=== PATIENT | female | born 1945 | race Caucasian/White ===

== ENCOUNTER 2017-01-14 04:07 | Emergency (ER) | payer MEDICARE ==
[~2017-01-14 04:07] MED LIST: ACETAMINOPHEN PO; AMLODIPINE BES2.5 M1 PO; ANTIVERT/2525 MG PO; GLU500 PO; LAC PO; LOPERAMIDE1 MG/5 M1 PO; MAC100 PO; METOPROLOL SUC100 M1 PO; METOPROLOL SUC100 M2 PO; METOPROLOL SUCC50 M1 PO; MYL80 CH; PROTONIX40 MG PO; RANITIDINE HCL300 M2 PO; TRIAMTERENE AND1 CA1 PO; XALATAN2.5 ML; ZOCOR10 MG PO; ZOFRAN4 M2 PO
[2017-01-14 04:36] LABS: microscopic required? NO
[2017-01-14 04:43] LABS: BASOPHIL % 0.3 % (0-2); PLATELET COUNT 263 x10^3mcL (130-400)
[2017-01-14 04:44] LABS: RED CELL DISTRIBUTION WIDTH 15.5 % (11.5-14.5)
[2017-01-14 04:52] LABS: CALCIUM 8.7 mg/dL (8.5-10.1); CARBON DIOXIDE 28.9 mmol/L (21-32); CHLORIDE SERUM 102 mmol/L (98-107); CREATININE SERUM 0.8 mg/dL (0.6-1.0); GFR1 > 60 mL/min; GLUCOSE SERUM 114 mg/dL (74-106); POTASSIUM SERUM 3.9 mmol/L (3.5-5.1); SODIUM SERUM 140 mmol/L (136-145)
[2017-01-14 04:52] LABS: UA SPECIFIC GRAVITY 1.025 (1.005-1.035); urine erythrocyte NEGATIVE (NEGATIVE)
[2017-01-14 04:57] LABS: ALBUMIN 3.4 g/dL (3.4-5.0); ALKALINE PHOSPHATASE 82 U/L (46-116); ALT/SGPT 23 U/L (14-59); AMYLASE 80 U/L (25-115); AST/SGOT 20 U/L (15-37); BILIRUBIN TOTAL 0.8 mg/dL (0.20-1.00); LIPASE 123 IU/L (73-393); TOTAL PROTEIN, SERUM 7.5 g/dL (6.4-8.2)
[2017-01-14 06:02] VITALS: BP 133/68
== END 2017-01-14 06:02 | disposition home or self-care (01) ==
LOC: ED 04:07
PROVIDERS: Emergency Medicine
DX: R10.12 Left upper quadrant pain (principal); R19.7 Diarrhea, unspecified; R11.0 Nausea; E78.00 Pure hypercholesterolemia, unspecified; K21.9 Gastro-esophageal reflux disease without esophagitis; I10 Essential (primary) hypertension; Z88.2 Allergy status to sulfonamides; Z88.5 Allergy status to narcotic agent
CPT/HCPCS: Q0092

== ENCOUNTER 2017-03-09 10:51 | Inpatient (IN) | payer MEDICARE ==
[~2017-03-09] VITALS: Ht 167.6 cm; Wt 81.7 kg
[2017-03-09 12:53] LABS: PLATELET COUNT 201 x10^3mcL (130-400)
[2017-03-09 12:55] LABS: ALKALINE PHOSPHATASE 81 U/L (46-116); ALT/SGPT 16 U/L (14-59); AMYLASE 69 U/L (25-115); AST/SGOT 16 U/L (15-37); BILIRUBIN TOTAL 0.89 mg/dL (0.20-1.00); CALCIUM 8.3 mg/dL (8.5-10.1); CARBON DIOXIDE 29.9 mmol/L (21-32); CHLORIDE SERUM 95 mmol/L (98-107); CREATININE SERUM 0.6 mg/dL (0.6-1.0); GFR1 > 60 mL/min; GLUCOSE SERUM 117 mg/dL (74-106); LIPASE 121 IU/L (73-393); POTASSIUM SERUM 3.1 mmol/L (3.5-5.1); TOTAL PROTEIN, SERUM 6.8 g/dL (6.4-8.2)
[2017-03-09 12:59] LABS: SODIUM SERUM 112 mmol/L (136-145)
[2017-03-09 13:02] LABS: RED CELL DISTRIBUTION WIDTH 14.6 % (11.5-14.5)
[2017-03-09 15:18] LABS: T3 TOTAL 1.1 ng/mL
[2017-03-09 15:19] LABS: FREE T4 1.37 ng/dL (0.76-1.46); FREE THYROXINE INDEX 3.3 ug/dL (1.4-4.5)
[2017-03-09 16:15] VITALS: BP 151/76
[2017-03-09 20:05] LABS: CALCIUM 7.9 mg/dL (8.5-10.1); CARBON DIOXIDE 29.5 mmol/L (21-32); CHLORIDE SERUM 106 mmol/L (98-107); CREATININE SERUM 0.7 mg/dL (0.6-1.0); GFR1 > 60 mL/min; GLUCOSE SERUM 172 mg/dL (74-106); POTASSIUM SERUM 3.8 mmol/L (3.5-5.1); SODIUM SERUM 138 mmol/L (136-145)
[2017-03-09 21:31] VITALS: BP 136/72
[2017-03-10 06:07] VITALS: BP 137/75
[2017-03-10 06:21] LABS: CALCIUM 8.2 mg/dL (8.5-10.1); CARBON DIOXIDE 26.6 mmol/L (21-32); CHLORIDE SERUM 106 mmol/L (98-107); CREATININE SERUM 0.6 mg/dL (0.6-1.0); GFR1 > 60 mL/min; GLUCOSE SERUM 112 mg/dL (74-106); MAGNESIUM 1.8 mg/dL (1.8-2.4); POTASSIUM SERUM 4.1 mmol/L (3.5-5.1); SODIUM SERUM 138 mmol/L (136-145)
[2017-03-10 06:54] LABS: BASOPHIL % 0.4 % (0-2); PLATELET COUNT 177 x10^3mcL (130-400); RED CELL DISTRIBUTION WIDTH 14.5 % (11.5-14.5)
[2017-03-10 09:08] LABS: microscopic required? NO
[2017-03-10 09:24] LABS: urine erythrocyte NEGATIVE (NEGATIVE)
[2017-03-10 10:29] VITALS: BP 137/72
[2017-03-10 14:35] VITALS: Ht 167.6 cm; Wt 81.7 kg
[2017-03-10 18:20] VITALS: BP 132/69
[2017-03-10 23:02] VITALS: BP 132/93
[2017-03-11 06:33] LABS: BASOPHIL % 0.4 % (0-2); PLATELET COUNT 197 x10^3mcL (130-400); RED CELL DISTRIBUTION WIDTH 14.4 % (11.5-14.5)
[2017-03-11 07:02] VITALS: BP 115/57
[2017-03-11 07:03] LABS: CALCIUM 8.7 mg/dL (8.5-10.1); CHLORIDE SERUM 104 mmol/L (98-107); CREATININE SERUM 0.7 mg/dL (0.6-1.0); GFR1 > 60 mL/min; GLUCOSE SERUM 111 mg/dL (74-106); MAGNESIUM 1.8 mg/dL (1.8-2.4); PHOSPHOROUS 3.9 mg/dL (2.5-4.9); POTASSIUM SERUM 3.9 mmol/L (3.5-5.1); SODIUM SERUM 140 mmol/L (136-145)
[2017-03-11 09:59] VITALS: BP 122/56
[2017-03-11 14:20] VITALS: BP 122/56
[2017-03-11] MEDS ORDERED: XARELTO15 M1 PO (17:46)
== END 2017-03-11 18:00 | disposition home or self-care (01) | DRG 392 ==
LOC: ED 10:51 → MU 14:12 → DU 14:12 → MU 03-10 07:35
PROVIDERS: Emergency Medicine; ADMIT Family Medicine
DX: K52.9 Noninfective gastroenteritis and colitis, unspecified (principal); D68.69 Other thrombophilia; I82.432 Acute embolism and thrombosis of left popliteal vein; E11.43 Type 2 diabetes mellitus with diabetic autonomic (poly)neuropathy; K31.84 Gastroparesis; K21.9 Gastro-esophageal reflux disease without esophagitis; E11.65 Type 2 diabetes mellitus with hyperglycemia; H40.9 Unspecified glaucoma; Z68.29 Body mass index [BMI] 29.0-29.9, adult; Z79.84 Long term (current) use of oral hypoglycemic drugs
CPT/HCPCS: 82962; 83880; 84439; 87046; 87046-59; J1885; J2405; J3480; J3490; J7030; Q0092; Q9967

== ENCOUNTER 2017-03-24 13:23 | Emergency (ER) | payer MEDICARE ==
[~2017-03-24 13:23] MED LIST changes: +XARELTO15 M1 PO
[2017-03-24 15:20] LABS: UA SPECIFIC GRAVITY >=1.030 (1.005-1.035); microscopic required? YES; urine erythrocyte 3+ (NEGATIVE)
[2017-03-24 16:54] VITALS: BP 147/75
== END 2017-03-24 16:54 | disposition home or self-care (01) ==
LOC: ED 13:23
PROVIDERS: Emergency Medicine
DX: R31.9 Hematuria, unspecified (principal); D68.32 Hemorrhagic disorder due to extrinsic circulating anticoagulants; I10 Essential (primary) hypertension; E78.00 Pure hypercholesterolemia, unspecified; K21.9 Gastro-esophageal reflux disease without esophagitis; Z88.5 Allergy status to narcotic agent; Z88.1 Allergy status to other antibiotic agents; Z88.8 Allergy status to other drugs, medicaments and biological substances; Z79.899 Other long term (current) drug therapy

== ENCOUNTER 2018-10-16 14:52 | Emergency (ER) | payer MEDICARE ==
[~2018-10-16] VITALS: Ht 157.5 cm; Wt 83.5 kg
[2018-10-16 15:10] VITALS: Ht 157.5 cm; Wt 83.5 kg
[2018-10-16 16:46] LABS: BASOPHIL % 0.6 % (0-2); PLATELET COUNT 265 x10^3mcL (130-400); RED CELL DISTRIBUTION WIDTH 15.5 % (11.5-14.5)
[2018-10-16 17:04] LABS: CALCIUM 8.8 mg/dL (8.5-10.1); CARBON DIOXIDE 30.6 mmol/L (21-32); CHLORIDE SERUM 102 mmol/L (98-107); CREATININE SERUM 0.8 mg/dL (0.6-1.0); GLUCOSE SERUM 112 mg/dL (74-106); POTASSIUM SERUM 4.1 mmol/L (3.5-5.1); SODIUM SERUM 138 mmol/L (136-145)
[2018-10-16 17:08] LABS: ALKALINE PHOSPHATASE 86 U/L (46-116); ALT/SGPT 16 U/L (14-59); AMYLASE 73 U/L (25-115); AST/SGOT 15 U/L (15-37); BILIRUBIN TOTAL 0.5 mg/dL (0.20-1.00); LIPASE 127 IU/L (73-393); TOTAL PROTEIN, SERUM 7.3 g/dL (6.4-8.2)
[2018-10-16 17:12] LABS: ALBUMIN 3.2 g/dL (3.4-5.0)
[2018-10-16 17:35] LABS: microscopic required? NO
[2018-10-16 17:44] LABS: UA SPECIFIC GRAVITY 1.025 (1.005-1.035); urine erythrocyte NEGATIVE (NEGATIVE)
[2018-10-16 19:13] VITALS: BP 131/78
== END 2018-10-16 19:13 | disposition home or self-care (01) ==
LOC: ED 14:52
PROVIDERS: Emergency Medicine
DX: R11.2 Nausea with vomiting, unspecified (principal); R19.7 Diarrhea, unspecified; R25.2 Cramp and spasm; I10 Essential (primary) hypertension; E78.00 Pure hypercholesterolemia, unspecified; H40.9 Unspecified glaucoma; K21.9 Gastro-esophageal reflux disease without esophagitis; Z88.1 Allergy status to other antibiotic agents; Z88.2 Allergy status to sulfonamides; Z88.8 Allergy status to other drugs, medicaments and biological substances; Z88.5 Allergy status to narcotic agent
CPT/HCPCS: J1885; J7030

== ENCOUNTER 2018-10-28 08:07 | Emergency (ER) | payer MEDICARE ==
[~2018-10-28] VITALS: Ht 157.5 cm; Wt 84.4 kg
[2018-10-28 08:38] VITALS: Ht 157.5 cm; Wt 84.4 kg
[2018-10-28 13:13] VITALS: BP 152/76
== END 2018-10-28 13:13 | disposition home or self-care (01) ==
LOC: ED 08:07
DX: S83.91XA Sprain of unspecified site of right knee, initial encounter (principal); I10 Essential (primary) hypertension; E78.00 Pure hypercholesterolemia, unspecified; K21.9 Gastro-esophageal reflux disease without esophagitis; Z88.1 Allergy status to other antibiotic agents; Z88.2 Allergy status to sulfonamides; Z88.5 Allergy status to narcotic agent; Z88.8 Allergy status to other drugs, medicaments and biological substances; X50.1XXA Overexertion from prolonged static or awkward postures, initial encounter; Y93.89 Activity, other specified; Y92.091 Bathroom in other non-institutional residence as the place of occurrence of the external cause; Y99.8 Other external cause status
CPT/HCPCS: J1885

== ENCOUNTER 2018-12-27 00:22 | Emergency (ER) | payer MEDICARE, OTHER | END 2018-12-27 02:43 | disposition home or self-care (01) | LOC: ED 00:22 ==

== ENCOUNTER 2019-01-02 23:42 | Emergency (ER) | payer MEDICARE ==
[~2019-01-02] VITALS: Ht 157.5 cm; Wt 84.4 kg
[2019-01-02 23:48] VITALS: Ht 157.5 cm; Wt 84.4 kg
[2019-01-03 01:03] LABS: BASOPHIL % 0.6 % (0-2); PLATELET COUNT 238 x10^3mcL (130-400); RED CELL DISTRIBUTION WIDTH 14.3 % (11.5-14.5)
[2019-01-03 01:12] LABS: CALCIUM 8.7 mg/dL (8.5-10.1); CARBON DIOXIDE 33.9 mmol/L (21-32); CHLORIDE SERUM 99 mmol/L (98-107); CREATININE SERUM 0.8 mg/dL (0.6-1.0); GLUCOSE SERUM 116 mg/dL (74-106); POTASSIUM SERUM 3.7 mmol/L (3.5-5.1); SODIUM SERUM 135 mmol/L (136-145)
[2019-01-03 01:17] LABS: ALBUMIN 3.5 g/dL (3.4-5.0); ALKALINE PHOSPHATASE 93 U/L (46-116); ALT/SGPT 13 U/L (14-59); AST/SGOT 14 U/L (15-37); BILIRUBIN TOTAL 0.5 mg/dL (0.20-1.00); TOTAL PROTEIN, SERUM 7.8 g/dL (6.4-8.2)
[2019-01-03 03:13] VITALS: BP 140/76
== END 2019-01-03 03:13 | disposition home or self-care (01) ==
LOC: ED 23:42
PROVIDERS: Emergency Medicine
DX: R11.2 Nausea with vomiting, unspecified (principal); R25.2 Cramp and spasm; R42 Dizziness and giddiness; I10 Essential (primary) hypertension; E78.00 Pure hypercholesterolemia, unspecified; K21.9 Gastro-esophageal reflux disease without esophagitis; Z88.5 Allergy status to narcotic agent; Z88.2 Allergy status to sulfonamides; Z88.1 Allergy status to other antibiotic agents; Z91.048 Other nonmedicinal substance allergy status
CPT/HCPCS: 36415; Q0162

== ENCOUNTER 2019-02-28 09:55 | Emergency (ER) | payer MEDICARE ==
[~2019-02-28] VITALS: Ht 152.4 cm; Wt 81.2 kg
[~2019-02-28 09:55] MED LIST changes: -METOPROLOL SUC100 M1 PO
[2019-02-28 10:02] VITALS: Ht 152.4 cm; Wt 81.2 kg
[2019-02-28 11:22] LABS: CARBON DIOXIDE 30.4 mmol/L (21-32); CHLORIDE SERUM 102 mmol/L (98-107); CREATININE SERUM 0.7 mg/dL (0.6-1.0); GLUCOSE SERUM 155 mg/dL (74-106); POTASSIUM SERUM 3.4 mmol/L (3.5-5.1); SODIUM SERUM 140 mmol/L (136-145)
[2019-02-28 11:26] LABS: ALKALINE PHOSPHATASE 84 U/L (46-116); ALT/SGPT 12 U/L (14-59); AST/SGOT 9 U/L (15-37); BILIRUBIN TOTAL 0.95 mg/dL (0.20-1.00); LIPASE 88 IU/L (73-393); TOTAL PROTEIN, SERUM 7.1 g/dL (6.4-8.2)
[2019-02-28 11:27] LABS: ALBUMIN 3.1 g/dL (3.4-5.0)
[2019-02-28 11:41] LABS: UA SPECIFIC GRAVITY 1.015 (1.005-1.035); microscopic required? YES; urine erythrocyte NEGATIVE (NEGATIVE)
[2019-02-28 12:01] LABS: BASOPHIL % 0.4 % (0-2); PLATELET COUNT 231 x10^3mcL (130-400); RED CELL DISTRIBUTION WIDTH 14.8 % (11.5-14.5)
[2019-02-28 13:49] VITALS: BP 129/67
== END 2019-02-28 14:12 | disposition home or self-care (01) ==
LOC: ED 09:55
PROVIDERS: Emergency Medicine
DX: R10.9 Unspecified abdominal pain (principal); R11.10 Vomiting, unspecified; R19.7 Diarrhea, unspecified; I10 Essential (primary) hypertension; E78.00 Pure hypercholesterolemia, unspecified; K21.9 Gastro-esophageal reflux disease without esophagitis; Z88.2 Allergy status to sulfonamides; Z88.5 Allergy status to narcotic agent; Z88.8 Allergy status to other drugs, medicaments and biological substances
CPT/HCPCS: J2405; J3490; J7030

== ENCOUNTER 2019-04-30 23:03 | Inpatient (IN) | payer MEDICARE ==
[~2019-04-30] VITALS: Ht 160 cm; Wt 84.8 kg
[2019-04-30 23:10] VITALS: Ht 160 cm; Wt 84.8 kg
--- NOTE | 2019-04-30 23:14 | NUR ---
EKG IN TRIAGE IN PROGRESS.
[2019-05-01 00:22] LABS: BASOPHIL % 0.1 % (0-2); CALCIUM 8.4 mg/dL (8.5-10.1); CARBON DIOXIDE 29.6 mmol/L (21-32); CHLORIDE SERUM 98 mmol/L (98-107); CREATININE SERUM 0.8 mg/dL (0.6-1.0); GLUCOSE SERUM 179 mg/dL (74-106); PLATELET COUNT 281 x10^3mcL (130-400); POTASSIUM SERUM 3.7 mmol/L (3.5-5.1); SODIUM SERUM 137 mmol/L (136-145)
[2019-05-01 00:23] LABS: RED CELL DISTRIBUTION WIDTH 15.9 % (11.5-14.5)
[2019-05-01 00:38] LABS: ALBUMIN 3.4 g/dL (3.4-5.0); ALKALINE PHOSPHATASE 99 U/L (46-116); ALT/SGPT 13 U/L (14-59); AST/SGOT 13 U/L (15-37); BILIRUBIN TOTAL 0.6 mg/dL (0.20-1.00); LIPASE 125 IU/L (73-393); TOTAL PROTEIN, SERUM 7.7 g/dL (6.4-8.2)
--- NOTE | 2019-05-01 02:32 | NUR ---
PT BIB SELF C/O NAUSEA, EPIGASTRIC PAIN AND VOMITING SINCE 1500 YESTERDAY S/P EATING HAMBURGER AND FRIES. NO VOMTING NOTED AT THIS TIME. PT IS AAOX4, NO DISTRESS NOTED, RESP E/U, SKIN INTACT PINK WARM AND DRY. PT GOWNED, BED IN LOWEST POSITION. AWAITING MSE BY . WILL CONT TO MONITOR.
--- NOTE | 2019-05-01 04:07 | NUR ---
PT AMBULATED TO RESTROOM AND BACK TO [facility] WITH A STEADY GAIT WITHOUT INCIDENT.
--- NOTE | 2019-05-01 04:59 | NUR ---
PT LATYING IN POSITON OF COMFORT, PT IS AAOX4, NO DISTRESS NOTED, RESP E/U, SKIN IS PINK WARM AND DRY. PT TALKING ON THE CELL PHONE AT THIS TIME. PT REPORTS FEELING NAUSEA AND EPIGASTRIC PAIN. MD AWARE. NO FURHTER ORDERS AT THIS TIME.
[2019-05-01] MEDS ORDERED: HCTZ/TRIAMTEREN1 CA1 PO (05:30)
[2019-05-01] MEDS ORDERED: ALPHAGAN P5 M1 OU (05:31)
[2019-05-01] MEDS ORDERED: DICLOFENAC SODI75 MG PO (05:31)
[2019-05-01] MEDS ORDERED: SIMVASTATIN10 M1 PO (05:32)
--- NOTE | 2019-05-01 06:15 | NUR ---
MEDICATED PT PER MD ORDERS, SEE EMAR. PT STATED VERBAL UNDERSTANDING OF MEDICATION TEACHING. WILL CONT TO MONITOR.
--- NOTE | 2019-05-01 06:50 | NUR ---
REPORT GIVEN TO MARJORIE MAURICE ON TELE, WHO WILL RESUME FURTHER CARE OF THIS PATIENT.
--- NOTE | 2019-05-01 07:15 | NUR ---
SEEN IN BED AAOX4. ADMITS FOR CHEST PAIN AND POSS NSTEMI. STATED PAIN TO EPIGASTRIC AREA SINCE LAST NIGHT. DENIES NAUSEA. GEN BODY WEAKNESS. STATED ABLE TO AMBULATE WITH SLOW GAIT BUT STABLE. STATED VOIDS FREELY. S/L TO RIGHT HAND INTACT. CALL LIGHT PLACED WITHIN EASY REACH. SIDERAILS UP X2.
[2019-05-01 07:38] VITALS: BP 164/59
[2019-05-01 09:31] LABS: MAGNESIUM 1.7 mg/dL (1.8-2.4); PHOSPHOROUS 3.1 mg/dL (2.5-4.9)
[2019-05-01 09:34] LABS: CHOLESTEROL/HDL RATIO 2.5
--- NOTE | 2019-05-01 09:37 | NUR ---
PATIENT MADE AWARE OF NPO FOR ULTRASOUND OF GALL BLADDER.
[2019-05-01 09:44] LABS: T3 TOTAL 0.98 ng/mL
[2019-05-01 09:47] LABS: FREE T4 1.31 ng/dL (0.76-1.46); FREE THYROXINE INDEX 3.4 ug/dL (1.4-4.5); T4(THYROXINE) 9.8 ug/dL (4.7-13.3)
[2019-05-01 11:59] VITALS: BP 128/63
[2019-05-01 14:00] VITALS: BP 110/60
--- NOTE | 2019-05-01 18:04 | NUR ---
SITTING UP IN BED HAVING DINNER. DENIES NAUSEA, STATED PAIN TO RUQ IS TOLERABLE. IVF NS TO RT HAND INFUSING WELL.
[2019-05-01 18:08] VITALS: BP 110/56
--- NOTE | 2019-05-01 19:29 | NUR ---
RECEIVED PT FROM PREVIOUS SHIFT. PT A/OX4. DENIES PAIN. DENIES SOB ON RA. IV PATENT AND INFUSING NS AT 100ML/HR WITH NO S/S OF INFILTRATION. PT VERBALIZED UNDERSTANDING THAT SHE WILL BE NPO AFTER MIDNIGHT FOR EGD IN AM. CALL LIGHT WITHIN REACH, BED IN LOW POSITION. WILL CONTINUE TO MONITOR.
--- NOTE | 2019-05-01 20:56 | NUR ---
WITNESSED SIGNING OF INFORMED CONSENT FOR EGD TOMORROW 05/02.
[2019-05-01 21:31] VITALS: BP 109/51
--- NOTE | 2019-05-02 00:51 | NUR ---
PT RESITNG IN NO ACUTE DISTRESS. RR EVEN AND UNLABORED. CALL LIGHT WITHIN REACH, BED IN LOW POSITION. CALL LIGHT WITHIN REACH, BED IN LOW POSITION. WILL CONTINUE TO MONITOR.
[2019-05-02 05:43] VITALS: BP 136/54
[2019-05-02 06:31] LABS: BASOPHIL % 0.3 % (0-2); PLATELET COUNT 221 x10^3mcL (130-400)
[2019-05-02 06:42] LABS: CALCIUM 8.3 mg/dL (8.5-10.1); CARBON DIOXIDE 28.7 mmol/L (21-32); CHLORIDE SERUM 103 mmol/L (98-107); CREATININE SERUM 0.7 mg/dL (0.6-1.0); GLUCOSE SERUM 118 mg/dL (74-106); POTASSIUM SERUM 4.4 mmol/L (3.5-5.1); SODIUM SERUM 140 mmol/L (136-145)
--- NOTE | 2019-05-02 07:25 | NUR ---
RECEIVED REPORT FROM RUSS MAURICE. PATIENT RESTING COMFORTABLY IN BED WITH ALL NEEDS MET. IV TO RT HAND IS PATENT AND INFUSING NS @ 100 ML/HR. NO REDNESS OR PAIN. TELE # [phone] PT DENIES CHES T-PAIN. PT ON ROOM AIR. NO C/O SOB AND NO DISTRESS NOTED. ALL QUESTIONS AND CONCERNS ADDRESSED.
[2019-05-02 08:25] VITALS: BP 132/61
--- NOTE | 2019-05-02 09:31 | NUR ---
REPORT GIVEN TO GI LAB. PT SALINE LOCKED AND TRANSPORTATION HAS ARRIVED TO TAKE PATIENT DOWNSTAIRS. AWAITING PATIENT RETURN TO FLOOR.
--- NOTE | 2019-05-02 10:23 | NUR ---
RECEIVED REPORT FROM OUTPATIENT. PT TOLERATED PROCEDURE WELL, VITALS ARE STABLE (SEE DOCUMENTATION), AND POST DIAGNOSIS WAS NORMAL. AWAITING PT RETURN TO FLOOR.
[2019-05-02 10:24] LABS: microscopic required? NO
--- NOTE | 2019-05-02 10:40 | NUR ---
RECEIVED PATIENT FROM OUTPATIENT. PATIENT RESTING COMFORTABLY IN BED. FLUIDS RESUMED, TELE MONITOR REAPPLIED, PT REQUESTING FOOD. WILL CONSULT WITH MD FOR DIET ORDER.
--- NOTE | 2019-05-02 10:49 | NUR ---
DR MORAN PAGED FOR DIET ORDER AND MAG 1.7 COVERAGE.
[2019-05-02 11:03] LABS: urine erythrocyte NEGATIVE (NEGATIVE)
[2019-05-02 11:27] LABS: AMPHETAMINE QUAL UR NONE DETECTED (See below)
[2019-05-02 12:01] VITALS: BP 108/59
--- NOTE | 2019-05-02 12:14 | NUR ---
SPOKE WITH DR MORAN FOR DIET, DM EDUCATION AND PATIENT NOTIFICATION OF NEWLY DIAGNOSED DIABETES, DIABETES PROTOCOLS, AND DISCHARGE PRESCRIPTIONS FORM GLUCOMETER AND STRIPS. STATED THAT PATIENT WAS NOTIFIED DURING ROUNDS THIS MORNINIG, SHE IS STARTING THE PATIENT ON METFORMIN, AND THE PATIENT IS NOT BEING DISCHARGE TODAY BUT PRESCRIPTIONS CAN BE GIVEN AT THAT TIME.
--- NOTE | 2019-05-02 12:27 | NUR ---
SPOKE WITH DR MORAN TO REQUEST DM PROTOCOL (SS INSULIN, ACCUCHECKS), MAG COVERAGE. STATED THAT PATIENT DOES NOT WANT TO BEGIN DIABETES TREATMENT UNTIL SHE SEES HER PRIMARY CARE DOCTOR BUT SHE WILL COVER THE MAG AND PRESCRIBE METFORMIN, GLUCOMETER, AND STRIPS.
[2019-05-02] MEDS ORDERED: GLU500 PO (13:18)
[2019-05-02] MEDS ORDERED: ACCU-CHEK1 EACH MC (13:19)
[2019-05-02 14:55] VITALS: BP 108/59
--- NOTE | 2019-05-02 16:15 | NUR ---
IN TO DISCUSS DISCHARGE WITH PATIENT. PATIENT STATES THAT SHE WILL BE DRIVING HERSELF HOME AND WOULD LIKE TO WAIT UNTIL AFTER DINNER. INSTRUCTED PATIENT TO THAT IS HAD HER PAPERS READY AND TO NOTIFY WHEN IS READY TO SIGN THEM. PT VERBALIZED UNDERSTANDING.
--- NOTE | 2019-05-02 17:08 | NUR ---
IN TO SEE PATIENT AND ADMINISTER MEDICATION. PT STATES THAT SHE DOES NOT WANT TO TAKE THE METFORMIN UNTIL SHE RECEIVES A PRESCRIPTION FROM US AND GOES OVER IT WITH HER PRIMARY DOCTOR FIRST.
--- NOTE | 2019-05-02 18:30 | NUR ---
PATIENT STABLE FOR DISCHARGE PER MD. DISCHARGE INSTRUCTIONS AND SUMMARY DISCUSSED WITH PATIENT. PATIENT VERBALIZED UNDERSTANDING AND AGREES TO FOLLOW UP WITH PCP. IV REMOVED AND IV POLE CLEARED. ID BANDS CUT. TELE MONITOR REMOVED AND MONITOR NOTIFIED. STOOL SPECIMEN OBTAINED AT THIS TIME. PT ESCORTED TO LOBBY.
== END 2019-05-02 18:42 | disposition home or self-care (01) | DRG 392 ==
LOC: ED 23:03 → DU 05-01 05:57
PROVIDERS: General Practice; Internal Medicine Gastroenterology; ADMIT Internal Medicine
PROC: 0DB78ZX Excision of Stomach, Pylorus, Via Natural or Artificial Opening Endoscopic, Diagnostic (ICD-10-PCS; principal; 2019-05-02 09:30)
DX: K21.9 Gastro-esophageal reflux disease without esophagitis (principal); I10 Essential (primary) hypertension; K59.00 Constipation, unspecified; E78.5 Hyperlipidemia, unspecified; H40.9 Unspecified glaucoma; Z68.34 Body mass index [BMI] 34.0-34.9, adult
CPT/HCPCS: 43235; 83880; 84439; G0378; J1200; J1610; J1650; J2250; J2310; J2405; J3010; J3490; J7030; Q0092